=== PATIENT | female | born 1945 | race Caucasian/White ===

== ENCOUNTER 2018-08-12 10:28 | Inpatient (IN) | payer MEDICARE ==
[~2018-08-12] VITALS: Ht 149.9 cm; Wt 43.7 kg
[2018-08-12] MEDS ORDERED: SODIUM CHLORIDE 0.9% 1000ML 1,000 ML IV STA (11:06)
[2018-08-12] MEDS ORDERED: METHYLPREDNISOLONE SOD SUCC 125 MG/2ML VIAL IV STA (11:06)
[2018-08-12] MEDS ORDERED: ALBUTEROL SULF 0.083% NEB SOLN 3 ML NEB NEB STA (11:06)
[2018-08-12] MEDS ORDERED: IPRATROPIUM BROMIDE 0.02% 2.5 ML NEB NEB ONE (11:15)
[2018-08-12 11:53] LABS: BASOPHILS % 0.3 % (0.0-1.0); EOSINOPHILS % 0.1 % (0.0-6.0); HEMATOCRIT 42.2 % (34.2-44.1); HEMOGLOBIN 13.6 g/dL (12.0-16.0); LYMPHOCYTES # (AUTO) 0.9 (1.0-3.2); LYMPHOCYTES % 11.1 % (18.0-39.1); MEAN CORPUSCULAR HEMOGLOBIN 30.5 pg (28-32); MEAN CORPUSCULAR HGB CONC 32.2 g/dL (31-35); MEAN CORPUSCULAR VOLUME 94.6 fL (81-99); MONOCYTES # (AUTO) 0.8 (0.2-0.8); MONOCYTES % 10.1 % (4.4-11.3); NEUTROPHILS # (AUTO) 6.1 (2.1-6.9); NEUTROPHILS % 78.1 % (38.7-80.0); PLATELET COUNT 169 x10e3/uL (140-360); RED BLOOD COUNT 4.46 x10e6/uL (3.6-5.1); RED CELL DISTRIBUTION WIDTH 13.2 % (11.7-14.4)
[2018-08-12 12:00] LABS: INR 0.85; PROTHROMBIN TIME 12.1 seconds (11.9-14.5)
[2018-08-12 12:01] LABS: PARTIAL THROMBOPLASTIN TIME 37.7 seconds (23.8-35.5)
[2018-08-12 12:05] LABS: CLARITY,URINE HAZY (CLEAR); COLOR,URINE YELLOW (YELLOW)
[2018-08-12 12:06] LABS: BILIRUBIN,URINE 1+ (NEGATIVE); KETONES,URINE TRACE (NEGATIVE); LEUKOCYTE ESTERASE ,URINE 1+ (NEGATIVE); NITRITE,URINE NEGATIVE (NEGATIVE); PROTEIN,URINE DIPSTICK 1+ (NEGATIVE); URINE UROBILINOGEN 1 mg/dL (0.2 - 1)
[2018-08-12 12:07] LABS: AMORPHOUS SEDIMENT,URINE FEW (FEW); BACTERIA,URINE MANY /HPF; EPITHELIAL CELLS,URINE MODERATE /LPF; RBC,URINE 0-5 /HPF (0-5)
[2018-08-12 12:08] LABS: ALANINE AMINOTRANSFERASE 8 IU/L (0-55); ALBUMIN 3.1 g/dL (3.5-5.0); ALBUMIN/GLOBULIN RATIO 0.7 (0.8-2.0); ALKALINE PHOSPHATASE 100 IU/L (40-150); ANION GAP 12.9 mmol/L (8-16); BLOOD UREA NITROGEN 13 mg/dL (7-26); BUN/CREATININE RATIO 18 (6-25); CARBON DIOXIDE 32 mmol/L (22-29); CHLORIDE 95 mmol/L (98-107); CREATINE KINASE 24 IU/L (29-168); CREATININE, SERUM 0.74 mg/dL (0.57-1.11); EST GLOMERULAR FILTRATION RATE > 60 ML/MIN (60-); GLUCOSE 100 mg/dL (74-118); MAGNESIUM 1.5 MG/DL (1.3-2.1); SODIUM 137 mmol/L (136-145)
[2018-08-12 12:09] LABS: POTASSIUM 2.9 mmol/L (3.5-5.1)
[2018-08-12 12:28] LABS: STREPTOCOCCUS GRP A ANTIGEN NEGATIVE (NEGATIVE)
[2018-08-12] MEDS ORDERED: POTASSIUM CHLORIDE 20 MEQ TAB CR PO NR ×2 (12:30→20:00)
[2018-08-12 12:31] LABS: B-TYPE NATRIURETIC PEPTIDE2 139.9 pg/mL (0-100)
[2018-08-12 12:35] LABS: INFLUENZAE A&B ANTIGEN (RAPID) NEGATIVE (NEGATIVE)
[2018-08-12 13:02] LABS: CLARITY,URINE HAZY (CLEAR); COLOR,URINE YELLOW (YELLOW); LEUKOCYTE ESTERASE ,URINE NEGATIVE (NEGATIVE); NITRITE,URINE NEGATIVE (NEGATIVE); PROTEIN,URINE DIPSTICK TRACE (NEGATIVE)
[2018-08-12 13:03] LABS: BILIRUBIN,URINE NEGATIVE (NEGATIVE); KETONES,URINE TRACE (NEGATIVE); URINE UROBILINOGEN 0.2 mg/dL (0.2 - 1)
[2018-08-12 13:04] LABS: BACTERIA,URINE MODERATE /HPF; EPITHELIAL CELLS,URINE MODERATE /LPF; MUCUS,URINE FEW (RARE); RBC,URINE 0-5 /HPF (0-5)
--- NOTE | 2018-08-12 13:04 | Diagnostic Imaging Report ---
EXAMINATION: Chest AP portable COMPARISON: 07/22/2009. CLINICAL HISTORY: Cough and shortness of breath. DISCUSSION: Lines/tubes: None. Lungs: Patchy density in the right lung base with obscuration of the right hemidiaphragm concerning for developing pneumonia in the proper clinical setting. Left basilar subsegmental atelectasis. Pleura: Possible trace pleural effusions. No pneumothorax. Heart and mediastinum: The cardiomediastinal silhouette is normal. Bones and soft tissues: No acute bony abnormalities. Degenerative changes in the thoracic spine IMPRESSION: 1. Possible developing right lower lobe pneumonia. Recommend follow-up after treatment to document resolution. Signed by: Dr. Denisha Grant M.D. on 08/12/2018 1:00 PM
[2018-08-12] MEDS ORDERED: LEVOFLOXACIN 500MG/D5W 100ML 100 ML IV SCH (13:45)
[2018-08-12] MEDS ORDERED: KCL 20MEQ/.9 SOD CHL 1,000 ML IV ONE (14:30)
[2018-08-12] MEDS: AZITHROMYCIN 500MG/NS 250 ML 250 ML IV SCH (14:34)
[2018-08-12] MEDS: CEFTRIAXONE SOD 1 GM/NS 50 ML 50 ML IV SCH (14:34)
--- OUTSIDE RECORDS SUMMARY | 2018-08-12 14:49 | XMS REPORT ---
Author Author [facility] Address Unknown Phone Unavailable Care Team Providers Care Genetics Teacher Name Role Phone Huyen RAMIREZ Unavailable Unavailable Problems This patient has no known problems. Allergies, Adverse Reactions, Alerts This patient has no known allergies or adverse reactions. Medications This patient has no known medications. Results Test Description Test Time Test Comments Text Results Atomic Results Result Comments CHEST SINGLE (PORTABLE) 2018-08-12 12:58:00 [place] [address] Patient Name: RUTHY HOWE MR #: [id number] : 1945 Age/Sex: 73/F Req #: [id number] [facility] Physician: Ordered by: SHELLEY RAMIREZ MD Report #: [id number] Location: ER Room/Bed: Procedure: [id number] DX/CHEST SINGLE (PORTABLE) Exam Date: 08/12/18 Exam Time: 1240 REPORT STATUS: Signed EXAMINATION: Chest AP portable COMPARISON: . CLINICAL HISTORY: Cough and shortness of breath. DISCUSSION: Lines/tubes: None. Lungs: Patchy density in the right lung base with obscuration of the right hemidiaphragm concerning for developing pneumonia in the proper clinical setting. Left basilar subsegmental atelectasis. Pleura: Possible trace pleural effusions. No pneumothorax. Heart and mediastinum: The cardiomediastinal silhouette is normal. Bones and soft tissues: No acute bony abnormalities. Degenerative changes in the thoracic spine IMPRESSION: 1. Possible developing right lower lobe pneumonia. Recommend follow-up after treatment to document resolution. Signed by: Dr. Denisha Grant M.D. on 08/12/2018 1:00 PM Dictated By: MANUEL GRANT MD, MD 1300 Transcribed By: GIL on 08/12/18 1300 COPY TO: SHELLEY RAMIREZ MD
[2018-08-12] MEDS ORDERED: ALBUTEROL SULF 0.083% NEB SOLN 3 ML NEB NEB PRN (15:00)
[2018-08-12] MEDS ORDERED: ALBUTEROL SULF 0.083% NEB SOLN 3 ML NEB NEB SCH (15:00)
--- NOTE | 2018-08-12 15:06 | Pre Op History & Physical ---
CHIEF COMPLAINT: Fatigue and dyspnea. HISTORY OF PRESENT ILLNESS: The patient is a 73-year-old woman. She has a history of COPD. She uses Advair at home as well as a rescue inhaler. She does not have oxygen at home. She does have a nebulizer for emergencies. She recently had an outpatient CT scan that showed some tree-in-bud opacities in the superior segment of the right lower lobe. She also notes about a 10-pound weight loss over the past year. She went to see her family doctor today because of worsening fatigue and dyspnea. She felt weak. She subsequently came to the ER and was found to have infiltrate in the right lung. PAST MEDICAL HISTORY: 1. COPD. 2. Hypothyroidism. 3. Depression. PAST SURGICAL HISTORY: Noncontributory. ALLERGIES: THERE ARE NO KNOWN DRUG ALLERGIES. FAMILY HISTORY: The patient has no significant family history. SOCIAL HISTORY: The patient quit smoking. She is not an active drinker. REVIEW OF SYSTEMS: There is no history of headache or neck pain. The patient denies any fevers. She has no chest pain. She does have some dyspnea on exertion. She has no nausea or vomiting. She has no leg edema. She has no focal neurological complaints. PHYSICAL EXAMINATION: VITAL SIGNS: The patient is afebrile. The blood pressure is 145/68 and the saturation is 93%. The pulse is 95. HEENT: Shows no facial swelling or erythema. The nasal mucosa is normal. The oropharynx is normal. LYMPHATIC: Shows no submandibular, cervical, or supraclavicular adenopathy. CARDIAC: Reveals regular rate and rhythm with normal S1 and S2. LUNGS: Auscultation of lungs reveals clear breath sounds bilaterally. There is no wheezing. ABDOMEN: Soft, nontender. There is no rebound or guarding. EXTREMITIES: Show no leg edema or calf tenderness. There is no cyanosis or clubbing. SKIN: Shows no rashes. NEUROLOGICAL: Shows no focal abnormalities. LABORATORY DATA: Influenza is negative. Potassium is 2.9 and the other electrolytes are within normal limits. The BUN to creatinine ratio is normal. The white blood cell count is 7.7 and hemoglobin is 13.6. The platelet count is 169. RADIOGRAPHIC DATA: Chest x-ray shows a right lower lobe infiltrate. IMPRESSION: 1. Community-acquired pneumonia. 2. Chronic obstructive pulmonary disease. 3. Possible Mycobacterium avium complex infection. 4. Hypothyroidism. 5. Weight loss. PLAN: 1. IV antibiotics. 2. Bronchodilators. 3. Arrange for bronchoscopy. 4. Nutritional evaluation. 5. Nutritional supplementation. 6. Oxygen. MD ARGENTINA Chapin/TIM /[id number]
--- NOTE | 2018-08-12 16:20 | NUR ---
report received from john. patient to arrive on stretcher in stable condition.
--- NOTE | 2018-08-12 16:58 | NUR ---
patient arrived on unit via stretxhwe in stable condition. call nova within reach and bed in lowest position.
[2018-08-12 17:03] VITALS: BP 149/67
[2018-08-12 17:22] VITALS: BP 149/67
[2018-08-12] MEDS: PAROXETINE HCL 20 MG TAB PO SCH (17:22)
[2018-08-12] MEDS ORDERED: IPRATROPIUM BROMIDE 0.02% 2.5 ML NEB NEB SCH (18:00)
[2018-08-12] MEDS ORDERED: IPRATROPIUM BROMIDE 0.02% 2.5 ML NEB NEB PRN (18:00)
--- NOTE | 2018-08-12 18:50 | NUR ---
rounded with [employer] shift lead nurse, patient aware of change. call nova within reach and bed in lowest position. at bedside.
[2018-08-12 19:08] VITALS: BP 139/63
[2018-08-12 21:20] VITALS: BP 139/63
[2018-08-13] VITALS (8 sets, daily range): BP systolic 123–163; BP diastolic 62–74
--- NOTE | 2018-08-13 00:20 | NUR ---
Assessment done.aaox3.no resp.distress.no pain voiced. head of bed elevated @ 30degree.bed locked and in lowest position.phone and call light within reach.instructed to call for assistance as needed.assisted to use bath room.pt is back to bed safely.
[2018-08-13] MEDS: LEVOTHYROXINE SODIUM 50 MCG TAB PO SCH (05:48)
--- NOTE | 2018-08-13 07:00 | NUR ---
REPORT GIVEN TO THE ONCOMING RN.WALKING ROUNDS DONE.STABLE CONDITION.
[2018-08-13 07:05] LABS: HEMATOCRIT 33.6 % (34.2-44.1); HEMOGLOBIN 10.6 g/dL (12.0-16.0); LYMPHOCYTES % 18.8 % (18.0-39.1); MEAN CORPUSCULAR HEMOGLOBIN 30.2 pg (28-32); MEAN CORPUSCULAR HGB CONC 31.5 g/dL (31-35); MEAN CORPUSCULAR VOLUME 95.7 fL (81-99); MONOCYTES # (AUTO) 0.3 (0.2-0.8); MONOCYTES % 4.9 % (4.4-11.3); NEUTROPHILS # (AUTO) 4.2 (2.1-6.9); NEUTROPHILS % 75.9 % (38.7-80.0); PLATELET COUNT 150 x10e3/uL (140-360); RED BLOOD COUNT 3.51 x10e6/uL (3.6-5.1); RED CELL DISTRIBUTION WIDTH 13.2 % (11.7-14.4)
[2018-08-13] MEDS: PAROXETINE HCL 20 MG TAB PO SCH ×2 (08:19→16:40)
[2018-08-13] MEDS: AZITHROMYCIN 500MG/NS 250 ML 250 ML IV SCH (08:19)
[2018-08-13 08:26] LABS: ALANINE AMINOTRANSFERASE 13 IU/L (0-55); ALBUMIN 2.5 g/dL (3.5-5.0); ALBUMIN/GLOBULIN RATIO 0.8 (0.8-2.0); ALKALINE PHOSPHATASE 87 IU/L (40-150); ANION GAP 9.9 mmol/L (8-16); BLOOD UREA NITROGEN 13 mg/dL (7-26); BUN/CREATININE RATIO 19 (6-25); CALCIUM 8.8 mg/dL (8.4-10.2); CARBON DIOXIDE 27 mmol/L (22-29); CHLORIDE 106 mmol/L (98-107); CREATININE, SERUM 0.67 mg/dL (0.57-1.11); EST GLOMERULAR FILTRATION RATE > 60 ML/MIN (60-); GLUCOSE 118 mg/dL (74-118); POTASSIUM 4.9 mmol/L (3.5-5.1); SODIUM 138 mmol/L (136-145)
--- NOTE | 2018-08-13 08:52 | NUR ---
NOTIFIED MD WORRELL REGARDING CRITICAL LAB OF POSITIVE BLOOD CULTURES THIS AM. NO ORDERS RECEIVED AT THIS TIME
--- NOTE | 2018-08-13 09:19 | NUR ---
CALLED DEAN AND WILL BRING HOME MED LIST TODAY WHEN HE COMES AND VISITS PT.
[2018-08-13 09:48] LABS: CREATINE KINASE MB 1.6 ng/mL (0-5.0)
[2018-08-13] MEDS ORDERED: ADVAIR 500/501 EA INH (10:13)
[2018-08-13] MEDS ORDERED: ZALEPLON10 MG PO (10:18)
[2018-08-13] MEDS ORDERED: LEVOTHYROXINE50 MCG PO (10:18)
[2018-08-13] MEDS ORDERED: [UNRECOGNIZED DRUG - REMARK] INH (10:18)
[2018-08-13] MEDS ORDERED: VITAMIN D1000 UNI1 PO (10:18)
[2018-08-13] MEDS ORDERED: ALBUTEROL0.63 MG/3 (10:18)
[2018-08-13] MEDS ORDERED: PAROXETINE HCL10 MG PO (10:18)
--- NOTE | 2018-08-13 10:18 | NUR ---
HOME MED REC NOW ON COMPUTER. BROUGHT LIST
[2018-08-13] MEDS ORDERED: VANCOMYCIN 1GM/NS 250 ML 250 ML IV ONE (10:30)
[2018-08-13] MEDS ORDERED: METHYLPREDNISOLONE SOD SUCC 40 MG/ML VIAL 1ML IV NR (10:30)
--- NOTE | 2018-08-13 11:19 | Progress Note ---
DATE: Pulmonary Progress Note SUBJECTIVE: The patient still has some dyspnea. She has mild cough. PHYSICAL EXAMINATION: VITAL SIGNS: The patient is afebrile. The blood pressure is 134/70. The pulse is 73 and the respiratory rate is normal. HEENT: Shows no facial swelling or erythema. The oropharynx is normal. LYMPHATIC: Shows no submandibular, cervical, or supraclavicular adenopathy. CARDIAC: Reveals a regular rate and rhythm with a normal S1 and S2. LUNGS: Auscultation of lungs shows clear breath sounds bilaterally. There is no wheezing. ABDOMEN: Soft, nontender. There is no rebound or guarding. IMPRESSION: 1. Community-acquired pneumonia. 2. Chronic obstructive pulmonary disease. 3. Hypothyroidism. 4. Weight loss. PLAN: 1. Continue IV antibiotics. 2. Arrange for bronchoscopy tomorrow afternoon. 3. Continue oxygen. 4. Nutritional evaluation. Chauncey Silva MD LM/TIM /[id number]
[2018-08-13] MEDS: CEFTRIAXONE SOD 1 GM/NS 50 ML 50 ML IV SCH (13:26)
[2018-08-13] MEDS: SALMETEROL/FLUTICASONE 250/50 INH SCH ×2 (14:00→20:30)
--- NOTE | 2018-08-13 20:10 | NUR ---
Aaox3.ambulates .no resp.distress.no pain voiced.nasa cannula 2l 02 getting.bed locked and in lowest position.bed alarm on.phone and call light within reach.instructed to call for assistance as needed.
[2018-08-13] MEDS: ZOLPIDEM TARTRATE 10 MG TAB PO PRN (21:50)
--- NOTE | 2018-08-13 22:30 | NUR ---
C/o of tremor @hands after had breathing treatment and ambien 10 mg hs .v/s stable.keep monitor the pt.educate the pt and family that expected side effect of albuterol.
[2018-08-14] VITALS (7 sets, daily range): BP systolic 118–149; BP diastolic 60–88
--- NOTE | 2018-08-14 00:12 | NUR ---
Comfortably resting in the bed.stable condition.maintaining npo.
[2018-08-14] MEDS: LEVOTHYROXINE SODIUM 50 MCG TAB PO SCH (05:09)
--- NOTE | 2018-08-14 06:02 | NUR ---
Nasal swab sent to the lab for MRSA screen.
--- NOTE | 2018-08-14 06:50 | NUR ---
REPORT GIVEN TO THE ONCOMING RN.WALKING ROUNDS DONE.STABLE CONDITION.
[2018-08-14] MEDS: SALMETEROL/FLUTICASONE 250/50 INH SCH ×2 (07:20→19:35)
[2018-08-14] MEDS: PAROXETINE HCL 20 MG TAB PO SCH ×2 (09:00→18:00)
[2018-08-14] MEDS: AZITHROMYCIN 500MG/NS 250 ML 250 ML IV SCH (09:04)
[2018-08-14] MEDS: CEFTRIAXONE SOD 1 GM/NS 50 ML 50 ML IV SCH (13:19)
--- NOTE | 2018-08-14 14:27 | NUR ---
Nutrition Intervention Note RD Recommendation(s) for Physician: - ADAT to goal of Regular - Recommend Ensure Compact TID when diet advanced - Pt meets criteria for moderate protein calorie malnutrition Plan of Care: RD following, monitoring for tolerance and adequacy Nutrition reason for involvement: MD Consult, Nutrition Risk Trigger RD Assessment 08/14- 73 YOF admitted for COPD, pt seen today per MST score and MD consult. Pt reports decreased po intake over the past year due to difficulty breathing that is worse when she eats or when she gets "too full". Pt reports weighing 117# 1 year ago, wt change of 18% in 1 yr noted. Pt denies any N/V/C/D or difficulties chewing or swallowing. Pt is currently NPO for pending bronchoscopy for today. Pt is receptive to Ensure Compact TID when diet is advanced. POC and rec's discussed with KENIA Bell. Chart reviewed. Principal Problems/Diagnoses: COPD PMH: COPD, depression, hypothyroidism GI: LBM 08/13 Skin: intact Labs: 08/14- Na 138, K 4.9, BUN 13, Cr 0.67, Gluc 118 Meds: abx, synthroid Ht: 59 in Wt : 96.25 lb BMI: 19.4 IBW: 100 lb Malnutrition Evaluation (08/14/18) The patient meets criteria for MODERATE protein-calorie malnutrition. Energy intake: <75% of estimated energy requirements for >3 months- moderate Weight loss: 18% wt loss in 1 year- mild Fat loss: Mild Muscle loss: Moderate Supporting Evidence: Fluid accumulation: none observed Functional Status: unable to evaluate Nutrition Prescription (Diet Order): NPO Estimated Nutritional Needs: [id number] calories/day (25-35 kcal/kg CBW) 44-67 g protein/day (1-1.5 g pro/kg CBW) Diet Adequacy: Not meeting calorie needs, Not meeting protein needs Diet Education Needs Assessment: Diet education not indicated, patient on temporary/transition diet. Nutrition Care Level: Moderate Nutrition Diagnosis: Inadequate energy and protein intake related to COPD as evidenced by difficulty meeting po needs and progressive wt loss in 1 year. Goal: Patient will meet 75-100% of estimated needs by follow up Progress: N/A Interventions: General healthful diet,Commercial beverage, Collaboration with other providers Monitoring/Evaluation: Total energy intake, Total protein intake, Liquid supplement Signed: Zoie Lockwood RD, LD, [facility]
--- NOTE | 2018-08-14 14:59 | NUR ---
PT TO OR AT THIS TIME FOR PROCEDURE VIA BED.
[2018-08-14] MEDS ORDERED: LIDOCAINE HCL 4% 50 ML BTL ONE (15:04)
[2018-08-14] MEDS ORDERED: LIDOCAINE HCL 2% 30 ML TUBE ONE (15:04)
[2018-08-14] MEDS ORDERED: SUCCINYLCHOLINE 200 MG/10 ML SYR ONE (17:39)
[2018-08-14] MEDS ORDERED: SEVOFLURANE INHAL SOLN 250 ML PEN BTL ONE (17:39)
[2018-08-14] MEDS ORDERED: ONDANSETRON HCL INJ 2MG/ML 2ML 2 MG/ML VIAL ONE (17:39)
[2018-08-14] MEDS ORDERED: PROPOFOL IV EMULSION 10 MG/ML 20 ML VIAL ONE (17:39)
[2018-08-14] MEDS ORDERED: EPHEDRINE SULFATE INJ 50 MG/10 ML SYR ONE (17:39)
[2018-08-14] MEDS ORDERED: FENTANYL CITRATE/PF 100MCG/2 ML INJ ONE (19:00)
--- NOTE | 2018-08-14 19:13 | Operative Report ---
DATE OF PROCEDURE: SURGEON: Chauncey Silva MD PROCEDURE: Bronchoscopy with transbronchial biopsy. CONSENT: Consent was obtained from the patient. PREOPERATIVE DIAGNOSIS: Pneumonia. POSTOPERATIVE DIAGNOSIS: Pneumonia. ANESTHESIA: Anesthesia Service used MAC sedation and a laryngeal mask airway. PROCEDURE IN DETAIL: The patient was placed in supine position. The scope was introduced through the laryngeal mask airway. The glottis appeared normal. The scope was advanced through the glottis into the trachea. The tracheal mucosa was normal. Some thick secretions were removed from the distal trachea. The left tracheobronchial tree was then examined. The lingula and left upper lobe were normal to the subsegmental level. The left lower lobe was normal to the subsegmental level. Secretions were removed from the left lung. The scope was then repositioned into the right tracheobronchial tree. Examination of the right upper lobe, right middle lobe, and right lower lobe showed no endobronchial lesions. Some secretions were removed and the scope was wedged into the lateral basilar subsegment of the lower lobe. A bronchoalveolar lavage was performed. Forceps were then used to obtain transbronchial biopsies x3. Microbiology brushings were then obtained. COMPLICATIONS: None. ESTIMATED BLOOD LOSS: None. Chauncey Silva MD LMH/MODL /[id number]
--- NOTE | 2018-08-14 19:25 | Diagnostic Imaging Report ---
Examination: Single AP view of the chest. COMPARISON: None. INDICATION: Bronchoscopy DISCUSSION: Lines/tubes: None. Lungs: Central pulmonary venous congestion. No pneumonia. Pleura: No pleural effusion or pneumothorax. Heart and mediastinum: The heart and the mediastinum are unremarkable. Bones and soft tissues: No acute bony abnormalities. IMPRESSION: 1. No pneumothorax Signed by: Dr. Hugh Steele M.D. on 08/14/2018 7:22 PM
[2018-08-14 19:59] LABS: BODY FLUID TYPE PLEURAL
[2018-08-14 20:00] LABS: BODY FLUID APPEARANCE CLOUDY
[2018-08-14 20:30] LABS: RBC,BODY FLUID 21 cells/uL; WBC,BODY FLUID 530 cells/uL
[2018-08-14] MEDS: ZOLPIDEM TARTRATE 10 MG TAB PO PRN (20:56)
[2018-08-14 21:23] LABS: LYMPHOCYTES,BODY FLUID 30 %; MONO/MACROPHG,BODY FLUID 16 %; NEUTROPHILS,BODY FLUID 54 %
[2018-08-15] VITALS: BP 120/61
--- NOTE | 2018-08-15 00:55 | NUR ---
DR. WORRELL IS AWARE OF CHEST X RAY RESULT POST PROCEDURE.
[2018-08-15] MEDS: LEVOTHYROXINE SODIUM 50 MCG TAB PO SCH (05:12)
[2018-08-15] MEDS: SALMETEROL/FLUTICASONE 250/50 INH SCH (07:30)
[2018-08-15] MEDS: AZITHROMYCIN 500MG/NS 250 ML 250 ML IV SCH (08:03)
[2018-08-15] MEDS: PAROXETINE HCL 20 MG TAB PO SCH ×2 (08:03→16:30)
[2018-08-15 08:08] VITALS: BP 143/65
[2018-08-15 10:06] VITALS: BP 143/65
--- NOTE | 2018-08-15 11:37 | NUR ---
SPOKE TO DR. Denisha WORRELL REGARDING PT POSSIBLE NEED FOR HOME O2. O2 SATS DROPPED TO 85% AFTER AMBULATING TO THE RESTROOM. PER DR. Denisha WORRELL HE WILL SPEAK TO THE PATIENT ABOUT IT DURING ROUNDS TODAY HE WOULD LIKE TO SET IT UP THROUGH HIS OFFICE.
[2018-08-15] MEDS: CEFTRIAXONE SOD 1 GM/NS 50 ML 50 ML IV SCH (13:22)
[2018-08-15 13:25] VITALS: BP 119/53
--- NOTE | 2018-08-15 14:16 | NUR ---
IMM letter delivered and explained to pt. She stated she is ready to discharge. Signed copy placed in chart. Copy to pt. Received home oxygen order. Spoke to pt an she gave choice for [facility]. Signed choice letter placed in chart. Copy to pt. Referral was faxed to [facility] and notified Brayden and informed him that pt is discharging today. P [phone] F [phone] Brayden stated he will be able to deliver portables to hospital by 4:30pm.
--- NOTE | 2018-08-15 14:57 | NUR ---
RECEIVED HOME O2 EVAL PER DR. Denisha WORRELL. O2 EVAL COMPLETE PER RT. PT QUALIFIES. CASE MANAGEMENT WORKING ON GETTING O2. PT NOTIFIED AWAITING O2 DELIVERY BEFORE D/C HOME.
[2018-08-15] MEDS ORDERED: ADVAIR 500/501 EA INH (15:19)
[2018-08-15] MEDS ORDERED: CEFDINIR300 MG PO (15:19)
[2018-08-15 16:48] VITALS: BP 142/67
--- NOTE | 2018-08-15 18:14 | Discharge Summary ---
DISCHARGE DIAGNOSES: 1. Pneumonia. 2. Chronic obstructive pulmonary disease with acute exacerbation. DISCHARGE MEDICATIONS: 1. Advair 500/50 one puff twice daily. 2. Levothyroxine 50 mcg p.o. daily. 3. Paxil 10 mg p.o. b.i.d. 4. Albuterol through the nebulizer q.i.d. p.r.n. 5. Albuterol inhaler as needed p.r.n. 6. Omnicef 300 mg p.o. b.i.d. PROCEDURES: Bronchoscopy with bronchoalveolar lavage and transbronchial biopsy. HISTORY OF PRESENT ILLNESS: The patient is a 73-year-old woman. She has a history of COPD. She uses Advair as well as nebulizers at home. A recent outpatient CT shows some tree-in-bud opacities in the lower lobes bilaterally, but mostly in the right side. The patient also came in complaining of worsening dyspnea and congestion. She had a 10-pound weight loss over the past year. HOSPITAL COURSE: The patient was admitted. She received IV Solu-Medrol along with IV antibiotics. She also received bronchodilators and she improved with this. She underwent a bronchoscopy with bronchoalveolar lavage and brushings for culture. She also had transbronchial biopsy. She felt better at the time of discharge and was eager to go home. DISPOSITION: The patient was discharged home. She will return with Dr. Silva for the results of the bronchoscopy. We also made arrangements for home oxygen. Chauncey Silva MD LMH/TIM /[id number]
--- NOTE | 2018-08-25 22:13 | Discharge Summary ---
ADDENDUM: The patient met criteria for moderate protein-calorie malnutrition. She reported 18% weight loss over the prior year. She had albumin level of 2.5 on the 13 of August and had a nutrition consult documenting moderate protein-calorie malnutrition. Nutrition recommended Ensure 3 times a day with meals. MD ARGENTINA Chapin/TIM /[id number]
== END 2018-08-15 18:09 | disposition home or self-care (01) | DRG 190 ==
LOC: ER 10:28 → ERHOLD 14:46 → MED/SURG 16:48
PROVIDERS: ADMIT Internal Medicine Critical Care Medicine; ATTEND Internal Medicine Critical Care Medicine
PROC: 0BD98ZX Extraction of Lingula Bronchus, Via Natural or Artificial Opening Endoscopic, Diagnostic (ICD-10-PCS; 2018-08-14)
PROC: 0BD58ZX Extraction of Right Middle Lobe Bronchus, Via Natural or Artificial Opening Endoscopic, Diagnostic (ICD-10-PCS; 2018-08-14)
PROC: 0BD68ZX Extraction of Right Lower Lobe Bronchus, Via Natural or Artificial Opening Endoscopic, Diagnostic (ICD-10-PCS; 2018-08-14)
PROC: 0B9F8ZX Drainage of Right Lower Lung Lobe, Via Natural or Artificial Opening Endoscopic, Diagnostic (ICD-10-PCS; principal; 2018-08-14 11:30)
DX: J44.0 Chronic obstructive pulmonary disease with (acute) lower respiratory infection (principal); J18.9 Pneumonia, unspecified organism; Z68.1 Body mass index [BMI] 19.9 or less, adult; E44.0 Moderate protein-calorie malnutrition; J44.1 Chronic obstructive pulmonary disease with (acute) exacerbation; E03.9 Hypothyroidism, unspecified; R63.4 Abnormal weight loss
CPT/HCPCS: 31625; 36415; 71045; 80053; 81001; 82550; 82553; 83518; 83605; 83735; 83880; 84443; 84484; 85025; 85610; 85730; 87040; 87070; 87071; 87081; 87086; 87102; 87109; 87116; 87186; 87205; 87206; 87335; 87400; 88305; 88312; 89051; 93005; 94640; 94664; 99284; J0456; J0696; J2405; J2930; J3370; J7030

== ENCOUNTER → 2021-03-19 | Outpatient (CLI) | payer MEDICARE ==
[~2021-03-19] MED LIST: ADVAIR 500/501 EA INH; ALBUTEROL0.63 MG/3; CEFDINIR300 MG PO; LEVOTHYROXINE50 MCG PO; PAROXETINE HCL10 MG PO; VITAMIN D1000 UNI1 PO; ZALEPLON10 MG PO; [UNRECOGNIZED DRUG - REMARK] INH
[2021-03-19 08:52] LABS: ABG PCO2 56 mmHg (35-45); ABG PH 7.37 (7.35-7.45)
[2021-03-19 08:53] LABS: ABG HCO3 23 mmol/L (22-26); ABG PO2 95 mmHg (80-105)
[2021-03-19 08:54] LABS: ABG TCO2 34
== END ==
LOC: RESP 07:55
PROVIDERS: ATTEND Internal Medicine
DX: J44.9 Chronic obstructive pulmonary disease, unspecified (principal); J96.10 Chronic respiratory failure, unspecified whether with hypoxia or hypercapnia
CPT/HCPCS: 36415; 82805